=== PATIENT | male | born 1995 | race Caucasian/White ===

== ENCOUNTER 2022-05-22 17:34 | Emergency (ER) | payer OTHER ==
[~2022-05-22] VITALS: Ht 165.1 cm; Wt 56.7 kg
[2022-05-22] MEDS ORDERED: DOXYCYCLINE HY100 MG PO (22:15)
[2022-05-22] MEDS ORDERED: HYDROCODON-ACE1 EA10 PO (22:15)
== END 2022-05-22 22:54 | disposition home or self-care (01) ==
LOC: ED 17:34
DX: L60.0 Ingrowing nail (principal); L03.115 Cellulitis of right lower limb
CPT/HCPCS: 90714; A9270